=== PATIENT | female | born 1985 | race Caucasian/White ===

== ENCOUNTER 2023-03-29 10:49 | Emergency (ER) | payer BC ==
--- OUTSIDE RECORDS SUMMARY | 2023-03-29 10:52 | XMS REPORT | Continuity of Care Document ---
:1985 Author Organization [facility] t Address [address] [place] [address] [address] [place] [address] Care Team Providers Name Role Phone [email or web address] Attending Clinician Unavailable Christiano Moncada Attending Clinician [phone] [email or web address] Admitting Clinician Unavailable Payers Payer Name Policy Type Policy Number Effective Date Expiration Date S mat[place] [id number] 2020 00:00:00 Problems This patient has no known problems. Allergies, Adverse Reactions, Alerts Allergy Allergy Status Severity Reaction(s) Onset Inactive Treating Comm ents Source Name Type Date Date Clinician prometha DA Active U 2018-0 [facility] [place] prometha DA Active U 2012- [facility]ine [facility]10 [facility] Phenerga Allergy Active [facility] Social History Smoking Status Start Date Stop Date Source Never Smoker [facility] Medications Ordered Filled Start Stop Current Ordering Indication Dosage Frequency Signature Comments Components Source Medication Medication Date Date Medication? Clinician (SIG) Name Name Jarvis Conley No Jarvis Gauri via 7.5 mg/0.5 7.5 mg/0.5 7.5 mg/0.5 Medical mL mL mL subcutaneou subcutaneou subcutaneo s pen s pen us pen injector injector injector ciprofloxac ciprofloxac No 1 Q12H ciprofloxa [facility] in 500 mg in 500 mg eliza 500 mg Medical tablet Take tablet Take tablet 1 tablet 1 tablet Take 1 every 12 every 12 tablet hours by hours by every 12 oral route oral route hours by for 7 days. for 7 days. oral route for 7 days. dextroamphe dextroamphe No dextroamph [facility] tamine-amph tamine-amph etamine-am Medical etamine 15 etamine 15 phetamine mg tablet mg tablet 15 mg tablet Mounjaro Mounjaro No Mounjaro Gauri via 7.5 mg/0.5 7.5 mg/0.5 7.5 mg/0.5 Medical mL mL mL subcutaneou subcutaneou subcutaneo s pen s pen us pen injector injector injector nitrofurant nitrofurant No 1capsul Q12H nitrofuran [facility] oin oin e(s) [facility] monohydrate monohydrate monohydrat /macrocryst /macrocryst e/macrocry als 100 mg als 100 mg stals 100 capsule capsule mg capsule Take 1 Take 1 Take 1 capsule capsule capsule every 12 every 12 every 12 hours by hours by hours by oral route oral route oral route for 5 days. for 5 days. for 5 days. Vitamin C Vitamin C No Vitamin C [facility] Vitamin D Vitamin D No Vitamin D [facility] zinc zinc No zinc [facility] Vital Signs Vital Name Observation Time Observation Value Comments Source BP Diastolic 2022-03-29 00:00:00 82 mm[Hg] [facility] Height 2022-03-29 00:00:00 68 [in_i] [facility] BMI (Body Mass Index) 2022-03-29 00:00:00 31.2 kg/m2 [facility] BP Systolic 2022-03-29 00:00:00 115 mm[Hg] [facility] Body Weight 2022-03-29 00:00:00 205 [lb_av] [facility] BP Diastolic 2022-02-01 00:00:00 88 mm[Hg] [facility] Height 2022-02-01 00:00:00 68 [in_i] [facility] BMI (Body Mass Index) 2022-02-01 00:00:00 33.3 kg/m2 [facility] BP Systolic 2022-02-01 00:00:00 137 mm[Hg] [facility] Body Weight 2022-02-01 00:00:00 219 [lb_av] [facility] Procedures Procedure Date / Time Performed Performing Clinician Mariela e Caesarean Section 2018-11-25 00:00:00 [facility] Caesarean Section 2013 00:00:00 [facility] Cholecystectomy [facility] (Gallbladder) Plan of Care Planned Activity Planned Date Details Comments Source Diagnostic Test 2022-03-29 00:00:00 [place] IgE Ab P [facility] Pending [Units/volume] in Serum [code = 6195-2] Encounters Start End Encounter Admission Attending Care Care Encounter Source Date/Time Date/Time Type Type Clinicians Facility Department ID 2022-03-29 2022-03-[address] [facility] [id number] [facility] 00:00:00 00:00:00 [facility] BARB Schwartz MD: [address], [place] [address] , Ph. 2022-02-23 2022-02-23 Outpatient GC_[facility]AOM[facility]_ PRIV PRIV [id number] [facility] 00:00:00 00:00:00 [place] [id number] Medic al 2022-02-01 2022-02-01 Outpatient GC_SWHAOMC_ PRIV PRIV [id number] [facility] 00:00:00 00:00:00 [place] [id number] Medic al 2022-02-01 2022-02-[address] [facility] 14 [facility] 00:00:00 00:00:00 [facility] BARB Schwartz MD: [address], [place] [address] , Ph. 2022-02-01 2022-02-01 Outpatient ALYX Moncada PRIV [id number] 00:00:00 00:00:00 Christiano [id number] [place] [id number] 2021-03-25 2021-03-25 Outpatient GC_SWHAOMC_ PRIV PRIV [id number] [facility] 10:26:00 10:26:00 [place] [id number] Medic al 2021-03-25 2021-03-25 Outpatient [facility] PRIV PRIV [id number] [facility] 00:00:00 00:00:00 [place] [id number] Medic al Results Test Description Test Time Test Comments Results Result Comments Source Urinalysis complete panel - Urine 2022-02-06 00:00:00 Test Item Value Reference Range Interpretation Comme nts urinalysis (UA) (test code = urinalysis (UA)) tnp [facility] MedicalBacteria identified in Urine by [id number] 00:00:00 Test Item Value Reference Range Interpretation Comments culture, urine (test code = see below no growth A culture, urine) urinalysis (UA) (test code = tnp urinalysis (UA)) [facility] MedicalHGB [id number] 05:26:00 Test Item Value Reference Range Interpretation Comments HEMOGLOBIN (test code = HGB) 9.2 g/dL 10.7-13.9 L HEMATOCRIT (test code = HCT) 30.6 % 32.1-42.1 L AG HEPATITIS B [id number] 13:31:00 Test Item Value Reference Range Interpretation Comments AG HEPATITIS B SURFACE (test code NONREACTIVE NONREACTIVE = HBSAG) : *IS CONSENT FORM SIGNED FOR HIV TESTING? YAB [id number] 13:31:00 Test Item Value Reference Range Interpretation Comments AB TREPONEMA (test code = TREPAB) NONREACTIVE NONREACTIVE : *IS CONSENT FORM SIGNED FOR HIV TESTING? YAB HIV 1 13:31:00 Test Item Value Reference Range Interpretation Comments AB HIV 1 2 (test NONREACTIVE NONREACTIVE Done by [facility] code = [id number]) 4th Gen HIV Ag/Ab Combo Screen : *IS CONSENT FORM SIGNED FOR HIV TESTING? YAG HEPATITIS B [id number] 12:52:00 Test Item Value Reference Range Interpretation Comments AG HEPATITIS B SURFACE (test code NONREACTIVE NONREACTIVE = HBSAG) : *IS CONSENT FORM SIGNED FOR HIV TESTING? YAB [id number] 12:52:00 Test Item Value Reference Range Interpretation Comments AB TREPONEMA (test code = TREPAB) NONREACTIVE NONREACTIVE : *IS CONSENT FORM SIGNED FOR HIV TESTING? YAB HIV 1 12:52:00 Test Item Value Reference Range Interpretation Comments AB HIV 1 2 (test code = [id number]) NONREACTIVE : *IS CONSENT FORM SIGNED FOR HIV TESTING? YCBC W/AUTO [id number] 12:09:00 Test Item Value Reference Range Interpretation Comments WHITE BLOOD CELL (test code = WBC) 9.1 K/mm3 6.6-12.1 N RED BLOOD CELL (test code = RBC) 3.79 M/mm3 3.45-5.01 N HEMOGLOBIN (test code = HGB) 10.5 g/dL 10.7-13.9 L HEMATOCRIT (test code = HCT) 34.3 % 32.1-42.1 N MEAN CELL VOLUME (test code = MCV) 91 fL 84.1-94.8 N MEAN CELL HGB (test code = MCH) 27.7 pg 27-35 N MEAN CELL HGB CONCETRATION (test 30.6 gm/dL 32.2-34.1 L code = MCHC) RED CELL DISTRIBUTION WIDTH (test 15.2 % 12.4-16.5 N code = RDW) PLATELET COUNT (test code = PLT) 180 K/mm3 133-385 N IMMATURE PLATELET FRACTION (test 0.0 % 0.0-10.8 N code = IPF) MEAN PLATELET VOLUME (test code = 11.5 fl 9.1-12.7 N MPV) NEUTROPHIL % (test code = NT%) 79.0 % 56.5-79.4 N LYMPHOCYTE % (test code = LY%) 13.6 % 14.3-34.3 L MONOCYTE % (test code = MO%) 6.2 % 5.1-10.4 N EOSINOPHIL % (test code = EO%) 0.5 % 0.1-3.0 N BASOPHIL % (test code = BA%) 0.2 % 0.1-1.0 N NEUTROPHIL # (test code = NT#) 7.2 K/mm3 LYMPHOCYTE # (test code = LY#) 1.2 K/mm3 MONOCYTE # (test code = MO#) 0.6 K/mm3 EOSINOPHIL # (test code = EO#) 0.05 K/mm3 BASOPHIL # (test code = BA#) 0.0 K/mm3 RBC MORPHOLOGY REQUIRED (test code NORMAL NORMAL = RBCM) PLATELET MORPHOLOGY REQUIRED (test NORMAL NORMAL code = PLTMR)
[2023-03-29 12:12] LABS: Absolute Lymphocytes (CBC) 1.3 K/uL (0.7-4.9); Hematocrit 37.4 % (36.0-45.0); Lymphocytes % 21.6 % (15.3-44.8); MCV 80.8 fL (80-100); MPV 9.1 fL (7.6-11.3); Platelets 236 thou/uL (152-406); RBC Red Blood Cell Count 4.64 M/uL (3.86-4.86); Specific Gravity 1.022 (1.005-1.030)
[2023-03-29 12:16] LABS: Specific Gravity 1.022 (1.005-1.030); Urine Bacteria 20-50 /HPF (<20); Urine Bilirubin NEGATIVE (Negative); Urine Blood Negative (Negative); Urine Clarity Extremely Turbid (Clear); Urine Color Light-Yellow (Yellow); Urine Glucose NEGATIVE (Negative); Urine Mucus Slight /HPF (None Seen); Urine Protein TRACE (Negative); Urine Urobilinogen Normal (Normal); Urine pH 5.5 (5.0-7.0)
[2023-03-29] MEDS ORDERED: FAMOTIDINE 20 MG/2 ML VIAL IV ONE (12:28)
[2023-03-29 12:32] LABS: Albumin 3.7 g/dL (3.4-5.0); Bilirubin Total 0.4 mg/dL (0.2-1.0); Potassium 3.7 mEq/L (3.5-5.1); Protein, Total 7.7 g/dL (6.4-8.2)
--- NOTE | 2023-03-29 13:12 | RAD REPORT ---
EXAM DESCRIPTION: CT - Abdomen Pelvis W Contrast - 03/29/2023 12:35 pm CLINICAL HISTORY: ABD PAIN COMPARISON: CT ABD PELVIS W CONTRAST dated 11/30/2014 TECHNIQUE: Thin cut axial CT imaging of the abdomen and pelvis was performed following intravenous a dministration of 100 mL Isovue 300. Multiplanar reformats were generated and reviewed. All CT scans are performed using dose optimization technique as appropriate and may include automated exposure control or mA/KV adjustment according to patient size. FINDINGS: No suspicious findings in the lung bases. Small region of focal swelling and adjacent fat stranding at the distal pancreatic body and tail. No appreciable fluid collections or hyperenhancement. The liver, spleen, adrenal glands, and remainder o f the pancreas show no suspicious findings. Gallbladder was surgically removed. Symmetric renal function is seen with no hydronephrosis or suspicious renal mass. No dilated bowel loops or bowel wall thickening. No free air, free fluid or inflammatory stranding. N o hernia, mass or bulky lymphadenopathy. Left adnexal marginally enhanced collapsed 2.4 cm cyst, likely physiologic. The urinary bladder is de compressed limiting evaluation. No suspicious bony findings. IMPRESSION: Region of focal swelling and adjacent fat stranding at the distal pancreatic body and ta il, suggests focal acute pancreatitis. No other intra-abdominal acute process.
--- NOTE | 2023-03-29 13:31 | EDPHYS ---
Physician Documentation [facility] Name: Esthela Snyder Age: 38 yrs Sex: Female : 1985 Arrival Date: 03/29/2023 Time: 10:49 Bed DX4 Private MD: ED Physician Yassine Lowe HPI: 03/29 11:01 This 38 yrs old Female presents to ER via Unassigned with complaints of Abdominal Pain. ms3 11:01 38-year-old female with no past medical history presents to the emergency department ms3 for abdominal pain that began on Sunday. Patient states pain is located in her epigastric region and rated a 5/10. Patient is unable to describe the pain. Patient denies nausea, vomiting, fevers, chills. 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 - Social history:: Smoking status: Patient denies any tobacco usage or history of. ROS: 11:01 Constitutional: Negative for fever, and chills. Neck: Negative for injury, pain, and ms3 swelling, Cardiovascular: Negative for chest pain, and palpitations. Respiratory: Negative for shortness of breath, cough, wheezing, and pleuritic chest pain, MS/Extremity: Negative for injury and deformity, Skin: Negative for injury, rash, and discoloration, 11:01 Abdomen/GI: Positive for abdominal pain, Negative for nausea, vomiting, and diarrhea, black/tarry stool, rectal pain, rectal bleeding, 11:01 All other systems are negative, Exam: 11:01 Constitutional: This is a well developed, well nourished patient who is awake, alert, ms3 and in no acute distress. Head/Face: Normocephalic, atraumatic. Neck: Trachea midline, no cervical lymphadenopathy. Supple, full range of motion without nuchal rigidity, or vertebral point tenderness. No Meningismus. Chest/axilla: Normal chest wall appearance and motion. Nontender with no deformity. Cardiovascular: Regular rate and rhythm with a normal S1 and S2. No gallops, murmurs, or rubs. Normal PMI, no JVD. No pulse deficits. Respiratory: Lungs have equal breath sounds bilaterally, clear to auscultation and percussion. No rales, rhonchi or wheezes noted. No increased work of breathing, no retractions or nasal flaring. Abdomen/GI: Soft, non-tender, with normal bowel sounds. No distension or tympany. No guarding or rebound. No evidence of tenderness throughout. Skin: Warm, dry with normal turgor. Normal color with no rashes, no lesions, and no evidence of cellulitis. MS/ Extremity: Pulses equal, no cyanosis. Neurovascular intact. Full, normal range of motion. 13:33 ECG was reviewed by the Attending Physician. ms3 Vital Signs: 11:17 BP 117 / 89; Pulse 79; Resp 16; Temp 99.1(O); Pulse Ox 100% on R/A; Weight 88.45 kg; kd3 Height 5 ft. 8 in. ; 11:17 Body Mass Index 29.65 (88.45 kg, 172.72 cm) kd3 MDM: 11:00 Patient medically screened. ms3 11:01 Differential diagnosis: gastritis, non-specific abd pain, pancreatitis. ms3 13:31 Data reviewed: vital signs, nurses notes, and as a result, I will discharge patient. I ms3 considered the following discharge prescriptions or medication management in the emergency department Medications were administered in the Emergency Department. See MAR. Independent interpretation of the following test(s) in the Emergency Department EKG: See my EKG interpretation above. Counseling: I had a detailed discussion with the patient and/or guardian regarding the historical points, exam findings, and any diagnostic results supporting the discharge/admit diagnosis, lab results, radiology results, the need for outpatient follow up, to return to the emergency department if symptoms worsen or persist or if there are any questions or concerns that arise at home. ED course: Discussed labs, CT findings suggestive of pancreatitis with patient. Patient offered hospital admission and declines at this time. Patient to follow-up with primary care physician in 2 to 3 days. Patient understands agrees with plan. All questions were answered.. 03/29 11:01 Order name: CBC with Diff; Complete Time: 12:45 ms3 03/29 11: Order name: CMP; Complete Time: 12:45 ms3 03/29 11: Order name: Lipase; Complete Time: 12:45 ms3 03/29 11: Order name: Test, Urine; Complete Time: 12:45 ms3 03/29 11:01 Order name: Urinalysis w/ reflexes; Complete Time: 12:45 ms3 03/29 11:01 Order name: CT Abd/Pelvis - IV Contrast Only; Complete Time: 13:25 ms3 03/29 11:01 Order name: EKG; Complete Time: 11:02 ms3 03/29 11:01 Order name: IV Saline Lock; Complete Time: 12:00 ms3 03/29 11:01 Order name: Labs collected and sent; Complete Time: 12:01 ms3 03/29 11:01 Order name: EKG Strip; Complete Time: 12:13 ms3 EC:33 Rate is 73 beats/min. Rhythm is regular. QRS [place] is Normal. IA interval is normal. QRS ms3 interval is normal. Clinical impression: NSR w/ Non-specific ST/T Changes. Interpreted by me. Reviewed by me. Administered Medications: 12:16 Drug: Famotidine IVP 20 mg IVP once; dilute with 10 mL 0.9% NaCl; give over 2 minutes kd3 Route: IVP; Site: right antecubital; 13:00 Follow up: Response: No adverse reaction iw Disposition Summary: 03/29/23 13:31 Discharge Ordered Notes: Location: Home ms3 Condition: Stable ms3 Diagnosis - Other acute pancreatitis without necrosis or infection ms3 Followup: ms3 - With: Private Physician - When: 2 - 3 days - Reason: Recheck today's complaints Discharge Instructions: - Discharge Summary Sheet ms3 - Acute Pancreatitis ms3 - Pancreatitis Eating Plan ms3 Forms: - Medication Reconciliation Form ms3 - Thank You Letter ms3 - Antibiotic Education ms3 - Prescription Opioid Use ms3 - Patient Portal Instructions ms3 - Leadership Thank You Letter ms3 - Work release form bc6 Signatures: Dispatcher [employer] Yassine Cardenas DO DO ms3 Valeria Bar RN RN kd3 Zoey Anne RN iw Corrections: (The following items were deleted from the chart) 11:18 11:18 Allergies: No Known Allergies; kd3 kd3
--- NOTE | 2023-03-29 13:31 | ER ---
Nurse's Notes [facility] Name: Esthela Snyder Age: 38 yrs Sex: Female : 1985 Arrival Date: 03/29/2023 Time: 10:49 Bed DX4 Private MD: Diagnosis: Other acute pancreatitis without necrosis or infection Presentation: 03/29 11:18 Coronavirus screen: Vaccine status: Patient reports being unvaccinated. Ebola Screen: kd3 No symptoms or risks identified at this time. Initial Sepsis Screen: Does the patient meet any 2 criteria? No. Patient's initial sepsis screen is negative. Does the patient have a suspected source of infection? No. Patient's initial sepsis screen is negative. Risk Assessment: Do you want to hurt yourself or someone else? Patient reports no desire to harm self or others. Onset of symptoms was March 29, 2023. 11:18 Method Of Arrival: Ambulatory kd3 11:18 Acuity: ANIBAL 3 kd3 11:19 Chief complaint: Patient states: I have had a constant pain in my upper stomach since kd3 Sunday. Nothing makes it better or worse. I have not had any nausea or vomiting with it. Triage Assessment: 11:18 General: Appears in no apparent distress. Behavior is calm, cooperative. Pain: kd3 Complains of pain in epigastric area. GI: Patient currently denies nausea. 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 - Social history:: Smoking status: Patient denies any tobacco usage or history of. Screenin:31 [facility] ED Fall Risk Assessment (Adult) Score/Fall Risk Level 0 - 2 = Low Risk. Abuse iw screen: Denies threats or abuse. Denies injuries from another. Nutritional screening: No deficits noted. Tuberculosis screening: No symptoms or risk factors identified. Assessment: 12:30 General: Appears in no apparent distress. comfortable, Behavior is calm, cooperative. iw Neuro: Level of Consciousness is awake, alert, obeys commands, Oriented to person, place, time, situation, Moves all extremities. Full function. 13:31 Reassessment: Patient appears in no apparent distress at this time. Patient and/or iw family updated on plan of care and expected duration. Pain level reassessed. Patient is alert, oriented x 3, equal unlabored respirations, skin warm/dry/pink. Vital Signs: 11:17 BP 117 / 89; Pulse 79; Resp 16; Temp 99.1(O); Pulse Ox 100% on R/A; Weight 88.45 kg; kd3 Height 5 ft. 8 in. ; 11:17 Body Mass Index 29.65 (88.45 kg, 172.72 cm) kd3 ED Course: 10:51 Patient arrived in ED. mr 10:51 Yassine Lowe DO is Attending Physician. ms3 11:18 Triage completed. kd3 11:19 Arm band placed on right wrist. kd3 12:01 EKG done per protocol. Performed by ED Staff. Shown to ED physician. Urine obtained. iw Labs ordered per protocol. Drawn by ED staff. 12:37 CT Abd/Pelvis - IV Contrast Only In Process Unspecified. EDMS 13:31 Zoey Anne, RN is Primary Nurse. iw 14:05 Patient has correct armband on for positive identification. Provided Education on: . iw 14:05 No provider procedures requiring assistance completed. IV discontinued, intact, iw bleeding controlled, No redness/swelling at site. Pressure dressing applied. Administered Medications: 12:16 Drug: Famotidine IVP 20 mg IVP once; dilute with 10 mL 0.9% NaCl; give over 2 minutes kd3 Route: IVP; Site: right antecubital; 13:00 Follow up: Response: No adverse reaction iw Medication: 12:30 VIS not applicable for this client. iw Outcome: 13:31 Discharge ordered by . ms3 14:05 Discharged to home ambulatory, iw 14:05 Condition: good 14:05 Discharge instructions given to patient, Instructed on discharge instructions, follow up and referral plans. Demonstrated understanding of instructions, follow-up care, 14:06 Patient left the ED. iw Signatures: Dispatcher [employer] EDTN Lyndsey Kim, Reg Reg mr Zoey Anne, RIVER HOLMAN iw Yassine Lowe DO DO ms3 Valeria Bar RN RN kd3 Corrections: (The following items were deleted from the chart) 11:18 11:18 Allergies: No Known Allergies; kd3 kd3
[2023-03-29 14:37] VITALS: BP 117/89; TEMP 99.1; O2SAT 100
--- NOTE | 2023-03-31 14:15 | EKG ---
Test Date: 2023-03-29 Test Time: 12:11:43 Child Nutrition Assistant: HIMA MEASUREMENT RESULTS: Intervals: Rate: 73 AK: 118 QRSD: 70 QT: 372 QTc: 409 [place]: P: 20 AK: 118 QRS: 50 T: 28 INTERPRETIVE STATEMENTS: Normal sinus rhythm Low voltage QRS Nonspecific T wave abnormality Abnormal ECG No previous ECG available for comparison Electronically Signed On 03-31-23 14:08:46 APPRENTICESHIP REPRESENTATIVE by Shelton Goodwin
== END 2023-03-29 14:06 | disposition home or self-care (01) ==
LOC: ER 10:49
DX: K85.80 Other acute pancreatitis without necrosis or infection (principal); Z88.8 Allergy status to other drugs, medicaments and biological substances
CPT/HCPCS: 93005; 85025; 81001; 36415; 81025; 83690; 80053; 74177; 96374; 99284; Q9967

== ENCOUNTER 2023-04-06 10:04 | Emergency (ER) | payer BC ==
--- OUTSIDE RECORDS SUMMARY | 2023-04-06 10:07 | XMS REPORT | Continuity of Care Document ---
:1985 Author Organization [facility] t Address [address] [place] [address] [address] [place] [address] Care Team Providers Name Role Phone [email or web address]_Lizet Attending Clinician Unavailable Christiano Moncada Attending Clinician [phone] JACQUI_[email or web address]_J Admitting Clinician Unavailable Payers Payer Name Policy Type Policy Number Effective Date Expiration Date S mat[place] [id number] 2020 00:00:00 Problems This patient has no known problems. Allergies, Adverse Reactions, Alerts Allergy Allergy Status Severity Reaction(s) Onset Inactive Treating Comm ents Source Name Type Date Date Clinician prometha DA Active U 2018-0 [facility] [place] prom[facility]a DA Active U 2012- [facility] Phenerga Allergy Active [facility] [...] Vitamin C Vitamin C No Vitamin C [facility] Vitamin D Vitamin D No Vitamin D [facility] zinc zinc No zinc [facility] Vital Signs Vital Name Observation Time Observation Value Comments Source BP Diastolic 2022-03-29 00:00:00 82 mm[Hg] [facility] Height 2022-03-29 00:00:00 68 [in_i] [facility] BMI (Body Mass Index) 2022-03-29 00:00:00 31[facility]2 [facility] Systolic 2022-03-29 00:00:00 115 mm[Hg] [facility] Body Weight 2022-03-29 00:00:00 205 [lb_av] [facility] BP Diastolic 2022-02-01 00:00:00 88 mm[Hg] [facility] Height 2022-02-01 00:00:00 68 [in_i] [facility] BMI (Body Mass Index) 2022-02-01 00:00:00 33.3 kg/m2 [facility] BP Systolic 2022-02-01 00:00:00 137 mm[Hg] [facility] Body Weight 2022-02-01 00:00:00 219 [lb_av] [facility] Procedures Procedure Date / Time Performed Performing Clinician Mariela e Caesarean Section 2018-11-25 00:00:00 [facility] Caes[facility] Section 2013 00:00:00 [facility]ole[facility] (Gallbladder) Plan of Care Planned Activity Planned Date Details Comments Source Diagnostic Test 2022-03-29 00:00:00 [place] IgE Ab [facility] Pending [Units/volume] in Serum [code = 6195-2] Encounters Start End Encounter Admission Attending Care Care Encounter Source Date/Time Date/Time Type Type Clinicians Facility Department ID 2022-03-29 2022-03-29 Christiano [facility] [id number] [facility]00 00:00:00 [facility] BARB Schwartz MD: [address], [place] [address] , Ph. 2022-02-23 2022-02-23 Outpatient [facility]_ PRIV PRIV [id number] [facility] 00:00:[facility] 00:00:00 [id number] Medic al 2022-02-01 2022-02-01 Outpatient GC_[facility]AOM[facility]_ PRIV PRIV [id number] [facility] 00:00:00 00:00:00 [place] [id number] Medic al 2022-02-01 2022-02-01 Christiano [facility] 14 [facility] 00:00:00 00:00:00 [facility] BARB Schwartz MD: [address], [place] [address] , Ph. 2022-02-01 2022-02-01 Outpatient ALYX Moncada [id number] 00:00:00 00:00:00 Christiano [id number] Lucio [id number] 2021-03-25 2021-03-25 Outpatient GC_[facility]_ PRIV PRIV [id number] [facility] 10:26:00 10:26:00 [place] [id number] Medic al 2021-03-25 2021-03-25 Outpatient [facility] PRIV [id number] [facility] 00:00:00 00:00:00 [place] [id number] Medic al Results Test Description Test Time Test Comments Results Result Comments Source Urinalysis complete panel - Urine 2022-02-06 00:00:00 Test Item Value Reference Range Interpretation Comme nts urinalysis (UA) (test code = urinalysis (UA)) tnp [facility] identified in Urine by [id number] 00:00:00 Test Item Value Reference Range Interpretation Comments culture, urine (test code = see below no growth A culture, urine) urinalysis (UA) (test code = tnp urinalysis (UA)) [facility] [id number] 05:26:00 Test Item Value Reference Range Interpretation Comments HEMOGLOBIN (test code = HGB) 9.2 g/dL 10.7-13.9 L HEMATOCRIT (test code = HCT) 30.6 % 32.1-42.1 L AG HEPATITIS B [id number] 13:31:00 Test Item Value Reference Range Interpretation Comments AG HEPATITIS B SURFACE (test code NONREACTIVE NONREACTIVE = HBSAG) : *IS CONSENT FORM SIGNED FOR HIV TESTING? YAB [id number] 13:31:00 Test Item Value Reference Range Interpretation Comments AB TREPONEMA (test code = TREPAB) NONREACTIVE NONREACTIVE : *IS CONSENT FORM SIGNED FOR HIV TESTING? YAB HIV 1 13:31:00 Test Item Value Reference Range Interpretation Comments AB HIV 1 2 (test NONREACTIVE NONREACTIVE Done by [facility] code = [id number]) 4th Gen HIV Ag/Ab Combo Screen : *IS CONSENT FORM SIGNED FOR HIV TESTING? YAG HEPATITIS B [id number] 12:52:00 Test Item Value Reference Range Interpretation Comments AG HEPATITIS B SURFACE (test code NONREACTIVE NONREACTIVE = HBSAG) : *IS CONSENT FORM SIGNED FOR HIV TESTING? YAB [id number] 12:52:00 Test Item Value Reference Range Interpretation Comments AB TREPONEMA (test code = TREPAB) NONREACTIVE NONREACTIVE : *IS CONSENT FORM SIGNED FOR HIV TESTING? YAB HIV 1 12:52:00 Test Item Value Reference Range Interpretation Comments AB HIV 1 2 (test code = VAD86IK) NONREACTIVE : *IS CONSENT FORM SIGNED FOR HIV TESTING? YCBC W/AUTO [id number] 12:09:00 Test Item Value Reference Range Interpretation [...]
[2023-04-06 10:45] LABS: Absolute Lymphocytes (CBC) 1.1 K/uL (0.7-4.9); Lymphocytes % 26.9 % (15.3-44.8); MCV 80.9 fL (80-100); MPV 8.8 fL (7.6-11.3); Platelets 215 thou/uL (152-406)
[2023-04-06 10:48] LABS: Specific Gravity 1.011 (1.005-1.030)
[2023-04-06 10:53] LABS: Specific Gravity 1.011 (1.005-1.030); Transitional Epithelial <5 /HPF (None Seen); Urine Bacteria >50 /HPF (<20); Urine Bilirubin NEGATIVE (Negative); Urine Blood Negative (Negative); Urine Clarity Extremely Turbid (Clear); Urine Color Light-Yellow (Yellow); Urine Glucose NEGATIVE (Negative); Urine Mucus Slight /HPF (None Seen); Urine Protein NEGATIVE (Negative); Urine RBC <5 /HPF (None Seen); Urine Urobilinogen Normal (Normal); Urine pH 5.5 (5.0-7.0)
[2023-04-06 11:03] LABS: Albumin 3.7 g/dL (3.4-5.0); Bilirubin Total 0.5 mg/dL (0.2-1.0); Potassium 3.5 mEq/L (3.5-5.1); Protein, Total 7.5 g/dL (6.4-8.2)
[2023-04-06] MEDS ORDERED: NA CHLORIDE 0.9% 2,000 ML ONE (11:12)
[2023-04-06] MEDS ORDERED: ONDANSETRON 4 MG/2 ML VIAL ONE (11:12)
[2023-04-06] MEDS ORDERED: FAMOTIDINE 20 MG/2 ML VIAL IV ONE (11:12)
--- NOTE | 2023-04-06 12:02 | RAD REPORT ---
EXAM DESCRIPTION: CT - Abdomen Pelvis W Contrast - 04/06/2023 11:38 am CLINICAL HISTORY: Abdominal pain COMPARISON: March 29, 2023 TECHNIQUE: Computed axial tomography of the abdomen pelvis was obtained. 100 cc Isovue-300 was admin istered intravenously. Oral contrast was not requested which limits evaluation of bowel and appendix All CT scans are performed using dose optimization technique as appropriate and may include automated exposure control or mA/KV adjustment according to patient size. FINDINGS: Pancreatic tail has decreased in size. The adjacent stranding within the fat has diminishe d. No pseudocyst Cholecystectomy. Liver, spleen, pancreas, adrenals and kidneys are unremarkable. 2 centimeter irregularly-shaped left ovarian cyst likely has recently ruptured. No significant free f luid. No follow up imaging recommended IMPRESSION: Mild pancreatitis has improved 2 centimeter irregularly-shaped left ovarian cyst likely has recently ruptured. No significant free f luid
--- NOTE | 2023-04-06 12:13 | EDPHYS ---
Physician Documentation [facility] Name: Esthela Snyder Age: 38 yrs Sex: Female : 1985 Arrival Date: 04/06/2023 Time: 10:04 Bed 17 Private MD: APRIL Physician Addison Espino HPI: 04/06 11:05 This 38 yrs old Female presents to ER via Ambulatory with complaints of marichuy Abdominal Pain. 11:05 The patient presents with abdominal pain in the epigastric area, in the upper abdomen. marichuy Onset: The symptoms/episode began/occurred 9 day(s) ago. The patient presents with pain that is acute, with no known mechanism of injury. The symptoms are located in the left mid back. Onset: The symptoms/episode began/occurred 1 week(s) ago. The pain does not radiate. Associated signs and symptoms: The patient has no apparent associated signs or symptoms. Modifying factors: The patient symptoms are alleviated by nothing, the patient symptoms are aggravated by nothing. The symptoms do not radiate. Severity of symptoms: At their worst the symptoms were mild. Modifying factors: The symptoms are alleviated by nothing, the symptoms are aggravated by nothing. Historical: - Allergies: 10:18 Phenergan; hb - Home Meds: 10:18 None [Active]; hb - PMHx: 10:18 None; hb - PSHx: 10:18 Cholecystectomy; section; x 2; hb - Immunization history:: Adult Immunizations unknown. - Social history:: Smoking status: Patient denies any tobacco usage or history of. - Family history:: not pertinent. ROS: 11:10 Constitutional: Negative for fever, chills, and weight loss, Eyes: Negative for injury, marichuy pain, redness, and discharge, ENT: Negative for injury, pain, and discharge, Neck: Negative for injury, pain, and swelling, Cardiovascular: Negative for chest pain, palpitations, and edema, Respiratory: Negative for shortness of breath, cough, wheezing, and pleuritic chest pain, Abdomen/GI: Negative for abdominal pain, nausea, vomiting, diarrhea, and constipation, Back: Negative for injury and pain, : Negative for injury, bleeding, discharge, and swelling, MS/Extremity: Negative for injury and deformity, Skin: Negative for injury, rash, and discoloration, Neuro: Negative for headache, weakness, numbness, tingling, and seizure, Psych: Negative for depression, anxiety, suicide ideation, homicidal ideation, and hallucinations, Allergy/Immunology: Negative for hives, rash, and allergies, Endocrine: Negative for neck swelling, polydipsia, polyuria, polyphagia, and marked weight changes, Exam: 11:10 Constitutional: This is a well developed, well nourished patient who is awake, alert, marichuy and in no acute distress. Head/Face: Normocephalic, atraumatic. Eyes: Pupils equal round and reactive to light, extra-ocular motions intact. Lids and lashes normal. Conjunctiva and sclera are non-icteric and not injected. Cornea within normal limits. Periorbital areas with no swelling, redness, or edema. ENT: Nares patent. No nasal discharge, no septal abnormalities noted. Tympanic membranes are normal and external auditory canals are clear. Oropharynx with no redness, swelling, or masses, exudates, or evidence of obstruction, uvula midline. Mucous membranes moist. Neck: Trachea midline, no thyromegaly or masses palpated, and no cervical lymphadenopathy. Supple, full range of motion without nuchal rigidity, or vertebral point tenderness. No Meningismus. Chest/axilla: Normal chest wall appearance and motion. Nontender with no deformity. No lesions are appreciated. Cardiovascular: Regular rate and rhythm with a normal S1 and S2. No gallops, murmurs, or rubs. Normal PMI, no JVD. No pulse deficits. Respiratory: Lungs have equal breath sounds bilaterally, clear to auscultation and percussion. No rales, rhonchi or wheezes noted. No increased work of breathing, no retractions or nasal flaring. Abdomen/GI: Soft, non-tender, with normal bowel sounds. No distension or tympany. No guarding or rebound. No evidence of tenderness throughout. Back: No spinal tenderness. No costovertebral tenderness. Full range of motion. Skin: Warm, dry with normal turgor. Normal color with no rashes, no lesions, and no evidence of cellulitis. MS/ Extremity: Pulses equal, no cyanosis. Neurovascular intact. Full, normal range of motion. Neuro: Awake and alert, GCS 15, oriented to person, place, time, and situation. Cranial nerves II-XII grossly intact. Motor strength 5/5 in all extremities. Sensory grossly intact. Cerebellar exam normal. Normal gait. Psych: Awake, alert, with orientation to person, place and time. Behavior, mood, and affect are within normal limits. 11:34 ECG was reviewed by the Attending Physician. [facility] Vital Signs: 10:16 BP 130 / 80; Pulse 77; Resp 16; Temp 98.7(O); Pulse Ox 100% on R/A; Weight 86.18 kg; hb Height 5 ft. 8 in. ; Pain 3/10; 11:00 BP 122 / 70; Pulse 58; Resp 18; Pulse Ox 100% ; Pain 4/10; db 12:30 BP 105 / 61; Pulse 62; Resp 18; Pulse Ox 100% on R/A; db 10:16 Body Mass Index 28.89 (86.18 kg, 172.72 cm) hb 10:16 Pain Scale: Adult hb 11:00 Pain Scale: Adult db MDM: 10:06 Patient medically screened. [facility] 11:13 Differential diagnosis: Obesity bowel obstruction, gastritis, non-specific abd pain. [facility] Data reviewed: vital signs, nurses notes, lab test result(s), EKG, radiologic studies, CT scan. Consideration of Admission/Observation Escalation of care including admission/observation considered. I considered the following discharge prescriptions or medication management in the emergency department Medications were administered in the Emergency Department. See MAR. Independent interpretation of the following test(s) in the Emergency Department EKG: See my EKG interpretation above. Test considered but Not performed: MRI: no mrcp. Care significantly affected by the following chronic conditions: no hx. 04/06 10:21 Order name: CBC with Diff; Complete Time: 11: [facility] 04/06 10:21 Order name: CMP; Complete Time: 11: [facility] 04/06 10:21 Order name: Lipase; Complete Time: 11: [facility] 04/06 10:21 Order name: Urinalysis w/ reflexes; Complete Time: 11: [facility] 04/06 10:21 Order name: Lipid Profile; Complete Time: 11: [facility] 04/06 10:21 Order name: PREGU; Complete Time: 11: [facility] 04/06 11:07 Order name: Troponin High Sensitivity; Complete Time: 11:46 [facility] 04/06 12:24 Order name: Urine Culture [facility] 04/06 10:21 Order name: CT Abd/Pelvis - IV Contrast Only; Complete Time: 12:10 [facility] 04/06 11:07 Order name: EKG; Complete Time: 11:08 [facility] 04/06 10:21 Order name: IV Saline Lock; Complete Time: 10:37 [facility] 04/06 10:21 Order name: Labs collected and sent; Complete Time: 10:37 [facility] 04/06 11:07 Order name: EKG - Nurse/Tech; Complete Time: 11:27 [facility] EC:34 Rate is 61 beats/min. Rhythm is regular. QRS [place] is Normal. [place] interval is normal. QRS marichuy interval is normal. QT interval is normal. No Q waves. T waves are Normal. No ST changes noted. Clinical impression: Normal ECG and No evidence of ischemia. Interpreted by me. Reviewed by me. Administered Medications: 10:55 Drug: NS 0.9% IV 1000 ml IV at 1 bolus Per protocol; 1000 mL bolus Route: IV; Rate: 1 db bolus; Site: right antecubital; 12:28 Follow up: Response: No adverse reaction; IV Status: Completed infusion; IV Intake: db 1000ml 11:00 Drug: Famotidine IVP 20 mg IVP once; dilute with 10 mL 0.9% NaCl; give over 2 minutes db Route: IVP; Site: right antecubital; 12:29 Follow up: Response: No adverse reaction db 11:00 Drug: Ondansetron IVP 4 mg IVP once; over 2 minutes Route: IVP; Site: right antecubital;db 12:29 Follow up: Response: No adverse reaction db 11:00 Drug: NS 0.9% IV 1000 ml IV at 1 bolus Per protocol; 1000 mL bolus Route: IV; Rate: 1 db bolus; Site: right antecubital; 12:50 Follow up: Response: No adverse reaction; IV Status: Completed infusion; IV Intake: db 1000ml 11:50 Drug: Rocephin IV 1 grams IV at per protocol once; Given slow IV push per pharmacy db instructions Route: IV; Rate: per protocol; Site: right antecubital; 12:28 Follow up: Response: No adverse reaction; IV Status: Completed infusion; IV Intake: 50mldb 12:50 Drug: Ciprofloxacin PO 250 mg PO once Route: PO; db 12:55 Follow up: Response: No adverse reaction db Disposition Summary: 04/06/23 12:12 Discharge Ordered Notes: Location: Home [facility] Problem: new [facility] Symptoms: have improved marichuy Condition: Stable marichuy Diagnosis - Acute pancreatitis without necrosis or infection, unspecified - improved marichuy - UTI/ Urinary tract infection, site not specified marichuy Followup: marichuy - With: Private Physician - When: 2 - 3 days - Reason: Recheck today's complaints, Continuance of care, Re-evaluation by your physician Followup: marichuy - With: Aria Burns MD - When: 2 - 3 days - Reason: Recheck today's complaints, Re-evaluation by your physician Discharge Instructions: - Discharge Summary Sheet marichuy - Acute Pancreatitis marichuy - Urinary Tract Infection, Adult marichuy - Acute Pancreatitis, [id number] [facility] - Chronic Pancreatitis marichuy - Pancreatitis Eating Plan [facility] Forms: - Medication Reconciliation Form [facility] - Thank You Letter [facility] - Antibiotic Education [facility] - Prescription Opioid Use [facility] - Patient Portal Instructions [facility] - Leadership Thank You Letter [facility] Prescriptions: - ondansetron 4 mg Oral Tablet,disintegrating - take 1 tablet ORAL route daily for 5 days; 20 tablet; Refills: 0, Product [facility] Selection Permitted - Cipro 250 mg Oral tablet - take 1 tablet ORAL route every 12 hours; 14 tablet; Refills: 0, Product [facility] Selection Permitted - Pepcid 20 mg Oral tablet - take 1 tablet ORAL route every 12 hours for 21 days; 42 tablet; Refills: 0, [facility] Product Selection Permitted - dicyclomine 10 mg/5 mL Oral solution - take 10 milliliters ORAL route 4 times per day; 200 milliliter; Refills: 0, [facility] Product Selection Permitted Signatures: Dispatcher [employer] Addison Bird MD MD cha Baxter, Heather, RN RN Christine Mcgrath, [facility] Melony Moralez, RN RN db
--- NOTE | 2023-04-06 12:13 | ER ---
Nurse's Notes [facility] Name: Esthela Snyder Age: 38 yrs Sex: Female : 1985 Arrival Date: 04/06/2023 Time: 10:04 Bed 17 Private MD: Diagnosis: Acute pancreatitis without necrosis or infection, unspecified-improved;UTI/ Urinary tract infection, site not specified Presentation: 04/06 10:16 Chief complaint: Chief complaint: Seen in ED on 03/29 for abdominal pain, sent home with hb Cipro and Flagyl, only took for 3 days, now c/o abdominal pain that radiates to back and nausea x 10 days. 10:16 Coronavirus screen: At this time, the client does not indicate any symptoms associated hb with coronavirus-19. Ebola Screen: No symptoms or risks identified at this time. Initial Sepsis Screen: Does the patient meet any 2 criteria? No. Patient's initial sepsis screen is negative. Does the patient have a suspected source of infection? No. Patient's initial sepsis screen is negative. Risk Assessment: Do you want to hurt yourself or someone else? Patient reports no desire to harm self or others. Onset of symptoms was April 06, 2023. 10:16 Method Of Arrival: Ambulatory hb 10:16 Acuity: ANIBAL 3 hb Historical: - Allergies: 10:18 Phenergan; hb - Home Meds: 10:18 None [Active]; hb - PMHx: 10:18 None; hb - PSHx: 10:18 Cholecystectomy; section; x 2; hb - Immunization history:: Adult Immunizations unknown. - Social history:: Smoking status: Patient denies any tobacco usage or history of. - Family history:: not pertinent. Screenin:19 [facility] ED Fall Risk Assessment (Adult) History of falling in the last 3 months, db including since admission No falls in past 3 months (0 pts) Confusion or Disorientation No (0 pts) Intoxicated or Sedated No (0 pts) Impaired Gait No (0 pts) Mobility Assist Device Used No (0 pt) Altered Elimination No (0 pt) Score/Fall Risk Level 0 - 2 = Low Risk Oriented to surroundings, Maintained a safe environment. Abuse screen: Denies threats or abuse. Denies injuries from another. Nutritional screening: No deficits noted. Tuberculosis screening: No symptoms or risk factors identified. Assessment: 10:19 Reassessment: Patient appears in no apparent distress at this time. Patient and/or db family updated on plan of care and expected duration. Pain level reassessed. Patient is alert, oriented x 3, equal unlabored respirations, skin warm/dry/pink. PATIENT AMBULATORY TO RESTROOM. General: Appears in no apparent distress. comfortable, Behavior is calm, cooperative, quiet. Pain: Complains of pain in abdomen. Neuro: Level of Consciousness is awake, alert, obeys commands, Oriented to person, place, time, situation. Respiratory: Airway is patent Respiratory effort is even, unlabored, Respiratory pattern is regular, symmetrical. GI: Bowel sounds present X 4 quads. Abd is soft. 11:00 Reassessment: Patient appears in no apparent distress at this time. Patient and/or db family updated on plan of care and expected duration. Pain level reassessed. Patient is alert, oriented x 3, equal unlabored respirations, skin warm/dry/pink. 12:30 Reassessment: Patient appears in no apparent distress at this time. Patient is alert, db oriented x 3, equal unlabored respirations, skin warm/dry/pink. Patient states feeling better. Patient states symptoms have improved. Vital Signs: 10:16 BP 130 / 80; Pulse 77; Resp 16; Temp 98.7(O); Pulse Ox 100% on R/A; Weight 86.18 kg; hb Height 5 ft. 8 in. ; Pain 3/10; 11:00 BP 122 / 70; Pulse 58; Resp 18; Pulse Ox 100% ; Pain 4/10; db 12:30 BP 105 / 61; Pulse 62; Resp 18; Pulse Ox 100% on R/A; db 10:16 Body Mass Index 28.89 (86.18 kg, 172.72 cm) hb 10:16 Pain Scale: Adult hb 11:00 Pain Scale: Adult db ED Course: 10:05 Patient arrived in ED. rg4 10:06 [facility] jh7 10:06 Solomon Mcneill MD is Attending Physician. jh7 10:11 Addison Espino MD is Attending Physician. [facility] 10:17 Melony Moralez, RIVER is Primary Nurse. db 10:18 Triage completed. hb 10:19 Patient has correct armband on for positive identification. Bed in low position. Call db light in reach. Side rails up X 1. Pulse ox on. NIBP on. Warm blanket given. 10:37 Inserted saline lock: 20 gauge in right antecubital area, using aseptic technique. aw1 10:38 Initial lab(s) drawn, by me, sent to lab. aw1 10:38 Urine collected: clean catch specimen, clear. aw1 11:00 Arm band placed on Patient placed in an exam room. db 11:39 CT Abd/Pelvis - IV Contrast Only In Process Unspecified. EDMS 12:10 Aria Burns MD is Referral Physician. [facility] 12:57 Provided Education on: DISCHARGED. db 12:57 No provider procedures requiring assistance completed. IV discontinued, intact, db bleeding controlled, No redness/swelling at site. Administered Medications: 10:55 Drug: NS 0.9% IV 1000 ml IV at 1 bolus Per protocol; 1000 mL bolus Route: IV; Rate: 1 db bolus; Site: right antecubital; 12:28 Follow up: Response: No adverse reaction; IV Status: Completed infusion; IV Intake: db 1000ml 11:00 Drug: Famotidine IVP 20 mg IVP once; dilute with 10 mL 0.9% NaCl; give over 2 minutes db Route: IVP; Site: right antecubital; 12:29 Follow up: Response: No adverse reaction db 11:00 Drug: Ondansetron IVP 4 mg IVP once; over 2 minutes Route: IVP; Site: right antecubital;db 12:29 Follow up: Response: No adverse reaction db 11:00 Drug: NS 0.9% IV 1000 ml IV at 1 bolus Per protocol; 1000 mL bolus Route: IV; Rate: 1 db bolus; Site: right antecubital; 12:50 Follow up: Response: No adverse reaction; IV Status: Completed infusion; IV Intake: db 1000ml 11:50 Drug: Rocephin IV 1 grams IV at per protocol once; Given slow IV push per pharmacy db instructions Route: IV; Rate: per protocol; Site: right antecubital; 12:28 Follow up: Response: No adverse reaction; IV Status: Completed infusion; IV Intake: 50mldb 12:50 Drug: Ciprofloxacin PO 250 mg PO once Route: PO; db 12:55 Follow up: Response: No adverse reaction db Medication: 10:19 VIS not applicable for this client. db Intake: 12:28 IV: 50ml; Total: 50ml. db 12:28 IV: 1000ml; Total: 1050ml. db 12:50 IV: 1000ml; Total: 2050ml. db Outcome: 12:12 Discharge ordered by . marichuy 12:57 Discharged to home ambulatory, db 12:57 Condition: stable 12:57 Discharge instructions given to patient, Instructed on discharge instructions, follow up and referral plans. Prescriptions given X 4, 13:22 Patient left the ED. db Signatures: Dispatcher [employer] EDPR Addison Espino MD MD cha Baxter, Heather, RN RN Court Flores rg4 Christine Mcgrath, LEGAL BILLING SPECIALIST LEGAL BILLING SPECIALIST 7 Melony Moralez, RN RN Gayle Lux aw1 Corrections: (The following items were deleted from the chart) 10:18 10:16 Chief complaint: hb hb
[2023-04-06] MEDS ORDERED: NA CHLORIDE 0.9% 50 ML ONE (12:16)
[2023-04-06] MEDS ORDERED: CEFTRIAXONE 1000 MG/VIAL ONE (12:16)
[2023-04-06] MEDS ORDERED: CIPROFLOXACIN HCL 250 MG TAB PO ONE (13:00)
[2023-04-06 13:32] VITALS: TEMP 98.7; O2SAT 100
[2023-04-06 13:43] VITALS: BP 105/61
--- NOTE | 2023-04-06 14:22 | EKG ---
Test Date: 2023-04-06 Test Time: 11:20:51 [employer]: [employer] MEASUREMENT RESULTS: Intervals: Rate: 61 OR: 124 QRSD: 80 QT: 436 QTc: 438 [place]: P: -15 OR: 124 QRS: 76 T: 46 INTERPRETIVE STATEMENTS: Normal sinus rhythm Normal ECG Compared to ECG 03/29/2023 12:11:43 T-wave abnormality no longer present Electronically Signed On 04-06-23 14:21:46 CEMENTER HAND by Shelton Goodwin
== END 2023-04-06 13:22 | disposition home or self-care (01) ==
LOC: ER 10:04
DX: K85.90 Acute pancreatitis without necrosis or infection, unspecified (principal); N39.0 Urinary tract infection, site not specified; Z88.8 Allergy status to other drugs, medicaments and biological substances
CPT/HCPCS: 96365; 96361; 93005; 85025; 81001; 87086; 36415; 81025; 80061; 84484; 83690; 80053; 74177; 96375; 99284; Q9967; J2405; J7030; J0696; 87088